=== PATIENT | female | born 1995 | race African-American/Black ===

== ENCOUNTER 2021-05-29 22:40 | Emergency (ER) | payer OTHER ==
[~2021-05-29] VITALS: Ht 157.5 cm; Wt 90.9 kg
[2021-05-29 23:17] LABS: BILIRUBIN,URINE SMALL (NEG); CLARITY,URINE CLEAR; COLOR,URINE AMBER; NITRITE,URINE NEGATIVE (NEG); PH,URINE 5.5 (<5.0-8.0); PROTEIN,URINE NEGATIVE (NEG-TRACE); UROBILINOGEN,URINE 0.2 mg/dL (0.2 mg/dL)
[2021-05-29 23:28] LABS: BACTERIA,URINE FEW /HPF (0-FEW); RBC,URINE 0 /HPF (0-2)
--- NOTE | 2021-05-29 23:38 | PHYS DOC ---
Past Medical History Past Medical History: STD (NASRIN SERRATO APRN) Past Surgical History: No Surgical History (NASRIN SERRATO APRN) General Adult EDM: Chief Complaint: VAGINAL PROBLEM HPI: HPI: Patient is a 25-year-old female that presents today with vaginal discharge. Patient states the vaginal discharge started on Monday, she does admit to having unprotected sex on Monday. She denies having any lower abdominal pain or dysuria with this. Patient describes discharge as white odorless. (NASRIN SERRATO APRN) Review of Systems: Review of Systems: Constitutional: Denies fever or chills. [] Eyes: Denies change in visual acuity. [] HENT: Denies nasal congestion or sore throat. [] Respiratory: Denies cough or shortness of breath. [] Cardiovascular: Denies chest pain or edema. [] GI: Denies abdominal pain, nausea, vomiting, bloody stools or diarrhea. [] /COLLATERAL CLERK: Denies dysuria, does have vaginal discharge Musculoskeletal: Denies back pain or joint pain. [] Integument: Denies rash. [] Neurologic: Denies headache, focal weakness or sensory changes. [] Endocrine: Denies polyuria or polydipsia. [] Lymphatic: Denies swollen glands. [] Psychiatric: Denies depression or anxiety. [] (NASRIN SERRATO APRN) Heart Score: C/O Chest Pain: N/A Risk Factors: Risk Factors: DM, Current or recent (<one month) smoker, HTN, HLP, family history of CAD, obesity. Risk Scores: Score 0 - 3: 2.5% MACE over next 6 weeks - Discharge Home Score 4 - 6: 20.3% MACE over next 6 weeks - Admit for Clinical Observation Score 7 - 10: 72.7% MACE over next 6 weeks - Early Invasive Strategies (NASRIN SERRATO APRN) Allergies: Allergies: Allergies Coded Allergies Type Severity Reaction Last Updated Verified azithromycin Allergy Intermediate 05/29/21 Yes (NASRIN SERRATO APRN) Physical Exam: PE: Constitutional: Well developed, well nourished, no acute distress, non-toxic appearance. [] HENT: Normocephalic, atraumatic, bilateral external ears normal, oropharynx moist, no oral exudates, nose normal. [] Eyes: PERRLA, EOMI, conjunctiva normal, no discharge. [] Neck: Normal range of motion, no tenderness, supple, no stridor. [] Cardiovascular:Heart rate regular rhythm, no murmur [] Lungs & Thorax: Bilateral breath sounds clear to auscultation [] Abdomen: Bowel sounds normal, soft, no tenderness, no masses, no pulsatile masses. Skin: Warm, dry, no erythema, no rash. [] Back: No tenderness, no CVA tenderness. [] Extremities: No tenderness, no cyanosis, no clubbing, ROM intact, no edema. [] Neurologic: Alert and oriented X 3, normal motor function, normal sensory function, no focal deficits noted. [] Psychologic: Affect normal, judgement normal, mood normal. [] (NASRIN SERRATO APRN) Current Patient Data: Labs: Laboratory Tests Test 05/29/21 23:10 05/29/21 23:12 Urine Collection Type Unknown Urine Color Claudia Urine Clarity Clear Urine pH 5.5 Urine Specific Navarro >=1.030 Urine Protein Negative mg/dL Urine Glucose (UA) Negative mg/dL Urine Ketones (Stick) Negative mg/dL Urine Blood Negative Urine Nitrite Negative Urine Bilirubin Small Urine Urobilinogen Dipstick 0.2 mg/dL Urine Leukocyte Esterase Trace Urine RBC 0 /HPF Urine WBC 1-4 /HPF Urine Squamous Epithelial Cells Mod /LPF Urine Bacteria Few /HPF Urine Mucus Mod /LPF Bedside Urine HCG, Qualitative Hcg negative Current Medications Medications (Trade) Dose Ordered Sig/Sara Route PRN Reason Start Time Stop Time Status Last Admin Dose Admin Ceftriaxone Sodium (Rocephin Im) 500 mg 1X ONCE IM 05/29/21 23:45 05/29/21 23:46 DC Laboratory Tests Test 05/29/21 23:10 05/29/21 23:12 Urine Collection Type Unknown Urine Color Claudia Urine Clarity Clear Urine pH 5.5 (<5.0-8.0) Urine Specific Navarro >=1.030 (1.000-1.030) Urine Protein Negative mg/dL (NEG-TRACE) Urine Glucose (UA) Negative mg/dL (NEG) Urine Ketones (Stick) Negative mg/dL (NEG) Urine Blood Negative (NEG) Urine Nitrite Negative (NEG) Urine Bilirubin Small (NEG) Urine Urobilinogen Dipstick 0.2 mg/dL (0.2 mg/dL) Urine Leukocyte Esterase Trace (NEG) Urine RBC 0 /HPF (0-2) Urine WBC 1-4 /HPF (0-4) Urine Squamous Epithelial Cells Mod /LPF Urine Bacteria Few /HPF (0-FEW) Urine Mucus Mod /LPF POC Urine HCG, Qualitative Hcg negative (Negative) Vital Signs: Vital Signs Date Time Temp Pulse Resp B/P (MAP) Pulse Ox O2 Delivery O2 Flow Rate FiO2 05/29/21 23:15 98.0 80 18 Room Air 98.0 (NASRIN SERRATO APRN) EKG: EKG: [] (NASRIN SERRATO APRN) Radiology/Procedures: Radiology/Procedures: Pelvic Exam: External exam is normal and without rash, No CMT, OS is closed, white odorless discharge noted, uterus NTTP, No adnexal masses or tenderness noted, cultures for GC chlamydia and wet prep done labeled at bedside and sent to lab] (NASRIN SERRATO APRN) Course & Med Decision Making: Course & Med Decision Making Pertinent Labs and Imaging studies reviewed. (See chart for details) Reviewed wet prep which was negative for trichomonas and yeast. We will treat the patient for an STI GC chlamydia, did genetic counsellor patient on using safe sex practices. Patient verbalized understanding of this (NASRIN SERRATO APRN) Dragon Disclaimer: Dragon Disclaimer: This electronic medical record was generated, in whole or in part, using a voice recognition dictation system. (NASRIN SERRATO APRN) Departure Departure Impression: Primary Impression: Sexually transmitted infection Disposition: HOME / SELF CARE / HOMELESS Condition: STABLE Referrals: VIPIN BARCENAS MD Patient Instructions: Sexually Transmitted Disease, [id number] Additional Instructions: Take the doxycycline 100 mg twice daily for 7 full days No sexual intercourse until antibiotics are completed, must get partner treated as well before having sexual intercourse. Use condom while having sexual intercourse to reduce exposure to other STIs as well Follow-up with any of the clinics listed on the brochure that I gave you or Dr. Barcenas for further COLLATERAL CLERK care Scripts Doxycycline Monohydrate (DOXYCYCLINE MONOHYDRATE) 100 Mg Capsule 100 MG PO BID for STI, #14 CAP Prov: NASRIN SERRATO APRN 05/30/21 NASRIN SERRATO APRN May 29, 2021 23:38 LIANG STAFFORD MD May 30, 2021 18:50
[2021-05-29] MEDS ORDERED: cefTRIAXone IM 500 MG VIAL. IM ONE (23:45)
[2021-05-30 00:01] VITALS: BP 132/62
[2021-05-30] MEDS ORDERED: DOXY-181 PO (00:04)
[2021-05-31 20:08] LABS: GC PROBE Negative (Negative)
== END 2021-05-30 00:21 | disposition home or self-care (01) ==
LOC: ER 22:40
DX: A64 Unspecified sexually transmitted disease (principal); Z88.1 Allergy status to other antibiotic agents
CPT/HCPCS: 81001; 81025; 87086; 87491; 87591; 96372; 99284; J0696; Q0111; 99283